=== PATIENT | female | born 1985 | race American Indian/Alaskan Native ===

== ENCOUNTER 2022-05-07 18:55 | Emergency (ER) | payer OTHER ==
[2022-05-07 19:50] VITALS: BP 176/93
[2022-05-07] MEDS ORDERED: ACETAMINOPHEN 500 MG TAB PO ONE (22:26)
[2022-05-07] MEDS ORDERED: IBUPROFEN 600 MG TAB PO ONE (22:26)
--- NOTE | 2022-05-07 22:55 | XRay Report ---
CHEST 2 VIEWS INDICATION / CLINICAL INFORMATION: chest wall pain. COMPARISON: None available. FINDINGS: SUPPORT DEVICES: None. HEART / MEDIASTINUM: Heart size and mediastinal contour appear within normal limits. LUNGS / PLEURA: No significant pulmonary or pleural abnormality. No pneumothorax. BONES: No significant osseous abnormality. ADDITIONAL FINDINGS: No significant additional findings. IMPRESSION: 1. No active cardiopulmonary disease. Signer Name: Alfonso Sarabia II, MD Signed: 05/07/2022 10:51 PM Workstation Name: [id number]
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
== END 2022-05-07 23:52 | disposition home or self-care (01) ==
LOC: ED 18:55
DX: S20.219A Contusion of unspecified front wall of thorax, initial encounter (principal); G44.209 Tension-type headache, unspecified, not intractable; V89.2XXA Person injured in unspecified motor-vehicle accident, traffic, initial encounter; Y93.89 Activity, other specified; Y92.89 Other specified places as the place of occurrence of the external cause; Y99.8 Other external cause status
CPT/HCPCS: 71046; 99283